=== PATIENT | male | born 2005 | race Caucasian/White ===

== ENCOUNTER 2023-12-09 17:35 | Emergency (ER) | payer BC, SELFPAY ==
--- NOTE | ~2023-12-09 | XR_ITS ---
CHEST RADIOGRAPH, PA AND LATERAL CLINICAL HISTORY: cp . COMPARISON: 09/23/2009 TECHNIQUE: PA and lateral views of the chest. FINDINGS The cardiomediastinal silhouette is unremarkable. Mild peribronchial thickening detected bilaterally. The lungs are otherwise clear. Visualized osseous structures and soft tissues are unremarkable. IMPRESSION: Mild peribronchial thickening, without focal infiltrate or effusion. Reviewed, dictated and finalized at location A.
--- NOTE | 2023-12-09 17:36 | ECG_ITS ---
Test Date: 2023-12-09 17:41:38 Measurements Intervals [place] Rate: 75 P: 64 GA: 147 QRS: 64 QRSD: 97 T: 45 QT: 365 QTc: 408 Interpretive Statements SINUS RHYTHM No previous ECG available for comparison Electronically Signed On 12-10-2023 15:25:25 CDT by Gavin Guardado M.D.
[2023-12-09 17:45] VITALS: BP 143/90; PULSE 73; RESP 16; TEMP 36.4; O2SAT 100
[2023-12-09 17:52] LABS: Basophils Percent Auto 0.3 % (0.2-1.2); Eosinophils Absolute Auto 0.1 K/mm3 (0-0.3); Eosinophils Percent Auto 1.2 % (0-4.4); Immature Granulocyte Absolute 0.01 K/mm3 (0.00-0.031); Immature Granulocyte Percent A 0.1 % (0-0.5); Lymphocytes Absolute Auto 1.82 K/mm3 (0.9-3.2); Lymphocytes Percent Auto 24.1 % (18.3-44.2); Mean Corpuscular HGB Conc 34.7 g/dl (32-36); Mean Corpuscular Hemoglobin 30.9 pg (26-34); Mean Corpuscular Volume 88.9 fl (80-100); Mean Platelet Volume 9.1 fl (7.4-10.4); Monocytes Absolute Auto 0.5 K/mm3 (0.1-0.6); Monocytes Percent Auto 7.1 % (2.6-8.5); Neutrophils Absolute Auto 5.1 K/mm3 (1.3-6.7); Neutrophils Percent Auto 67.2 % (45.5-73.1); Platelet Count Result 271 k/mm3 (150-375); Red Blood Count 5.51 M/mm3 (4.6-6.20); Red Cell Distribution Width 11.9 % (11.5-14.5); White Blood Count 7.6 K/mm3 (4.5-10.0)
[2023-12-09 18:03] LABS: INR 0.9; Prothrombin Time 12.8 Seconds (11.1-14.7)
[2023-12-09 18:04] LABS: Alanine Aminotransferase 17 U/L (6-50); Albumin Level 5.2 g/dL (3.5-5.1); Alkaline Phosphatase 58 U/L (38-126); Anion Gap 11 mmol/L (4-12); Aspartate Amino Transferase 26 U/L (17-59); Bilirubin,Total 0.5 mg/dL (0.2-1.3); Blood Urea Nitrogen 18 mg/dL (9-20); Calcium 9.9 mg/dL (8.4-10.2); Carbon Dioxide 28 mmol/L (22-30); Chloride 101 mmol/L (98-107); Estimated CRCL calculation 110 ml/min; Estimated Glomerular Filt Rate > 60; Glucose 100 mg/dL (65-110); Lipase 83 U/L (23-300); Partial Thromboplastin Time 29.1 Seconds (22.3-36.8); Sodium 140 mmol/L (137-145)
[2023-12-09 18:16] LABS: Troponin I < 0.012 ng/mL (0.000-0.034)
[2023-12-09 19:16] VITALS: PULSE 84
[2023-12-09 19:17] VITALS: BP 148/90; PULSE 84; RESP 14; O2SAT 100
--- NOTE | 2023-12-09 19:27 | ED_ITS ---
HPI - Chest Pain General Chief Complaint: Chest Pain Stated Complaint: cp Time Seen by Provider: 12/09/23 19:19 History of Present Illness HPI narrative: 18-year-old male presents to the emergency department for chest pain for 4 days. Patient states the pain is located in the anterior center of his chest describes it as sore. He denies any aggravating or alleviating factors includi ng pleuritic pain. Denies radiating pain or shortness of breath. denies cough or congestion, fever, lower extremity edema, history of VTE , hemoptysis. Denies injury or trauma to his chest wall. 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 He was hospitalized for 2-3 days and discharged home with colchicine. 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 He states he has not had any chest pain since he was discharged from the hospital. States his current pain does not feel like his myocarditis pain. Denies fever, body aches or flu-like symptoms. Denies history of family cardiac disease or CVA. Denies smoking. Related Data Allergies Allergy/AdvReac Type Severity Reaction Status Date / Time No Known Allergies Allergy Verified 12/09/23 17:35 Review of Systems Review of Systems: All systems reviewed & are unremarkable except as noted in HPI and below Exam Narrative: GENERAL: Well-appearing, well-nourished, and in no acute distress. HEAD: Normocephalic, atraumatic. EYES: PERRLA and EOMI. ENT: Nares clear, no rhinorrhea or epistaxis. Mucous membranes moist. NECK: Supple. CHEST: Clear to auscultation. No respiratory distress. No tenderness to chest wall HEART: Regular rate and rhythm. No murmur heard. Normal peripheral pulses. ABDOMEN: Soft, nontender, nondistended, normal active bowel sounds. EXTREMITIES: Normal range of motion. No edema. negative Homans bilaterally SKIN: Warm, dry, no rash. NEURO: No focal deficits. Alert and oriented x3 Course Vital Signs Vital signs: Vital Signs Temperature 97.6 F 12/09/23 17:45 Pulse Rate 73 12/09/23 17:45 Respiratory Rate 16 12/09/23 17:45 Blood Pressure 143/90 H 12/09/23 17:45 Pulse Oximetry 100 10/24/24 17:45 Temperature 97.6 F 12/09/23 17:45 Pulse Rate 91 12/09/23 20:04 Respiratory Rate 20 12/09/23 20:04 Blood Pressure 131/91 H 12/09/23 20:04 Pulse Oximetry 99 12/09/23 20:04 Oxygen Delivery Room Air 12/09/23 19:17 MDM - Chest Pain MDM Narrative Medical decision making narrative: 18-year-old male with history of myocarditis diagnosed in September of 2023 presents to the emergency department for substernal chest pain that started 4 days ago. No aggravating or alleviating factors. Vitals with mild elevated blood pressure 143/90, otherwise unremarkable. He is afebrile nontoxic appearing. He is well appearing on exam. EKG reveals sinus rhythm with a rate of 75 bpm., normal RI interval, normal QRS duration, normal QTC, no ST elevations or AV block consistent with myocarditis. His troponin is undetectable. Chest x-ray reveals mild pe ribronchial thickening without focal infiltrate or effusion, patient denies cough or congestion. Lipase is normal. ESR and CRP are within normal limits, therefore return of myocarditis or pericarditis is less likely. BNP is within normal limits. Workup discussed with patient and his family at bedside. His presentation is consistent with costochondritis. This was discussed with the patient. He was given a dose of IM Toradol in the ED and ibuprofen was sent to the pharmacy. I advised him to follow-up with his automatic gluing machine operator and attend his appointment on December 19. I discussed strict ED return precautions. He and his family are agreeable to plan verbalized understanding. Discharged in stable condition. Lab Data 12/09/23 17:46 12/09/23 17:46 Labs: Lab Results 12/09/23 Range/Units 17:46 WBC 7.6 (4.5-10.0) K/mm3 RBC 5.51 (4.6-6.20) M/mm3 Hgb 17.0 (14.0-18.0) g/dL Hct 49.0 (42.0-52.0) % MCV 88.9 (80-100) fl MCH 30.9 (26-34) pg MCHC 34.7 (32-36) g/dl RDW 11.9 (11.5-14.5) % Plt Count 271 (150-375) k/mm3 MPV 9.1 (7.4-10.4) fl Immature Gran % (Auto) 0.1 (0-0.5) % Neut % (Auto) 67.2 (45.5-73.1) % Lymph % (Auto) 24.1 (18.3-44.2) % Person % (Auto) 7.1 (2.6-8.5) % Eos % (Auto) 1.2 (0-4.4) % Baso % (Auto) 0.3 (0.2-1.2) % Lymph # (Auto) 1.82 (0.9-3.2) K/mm3 Person # (Auto) 0.5 (0.1-0.6) K/mm3 Eos # (Auto) 0.1 (0-0.3) K/mm3 Baso # (Auto) 0.0 (0.0-0.1) K/mm3 Abs Immat Gran (auto) 0.01 (0.00-0.031) K/mm3 Absolute Neuts (auto) 5.1 (1.3-6.7) K/mm3 Absolute Nucleated RBC 0.000 (0.0-0.012) K/mm3 Nucleated RBC % 0.0 (0.0-0.2) % ESR 3 (0-20) mm/hr PT 12.8 (11.1-14.7) Seconds INR 0.9 APTT 29.1 (22.3-36.8) Seconds Sodium 140 (137-145) mmol/L Potassium 4.0 (3.4-5.0) mmol/L Chloride 101 (98-107) mmol/L Carbon Dioxide 28 (22-30) mmol/L Anion Gap 11 (4-12) mmol/L BUN 18 (9-20) mg/dL Creatinine 1.10 (0.7-1.3) mg/dL Estim Creat Clear Calc 110 ml/min Estimated GFR > 60 (59 - ) Glucose 100 (65-110) mg/dL Calcium 9.9 (8.4-10.2) mg/dL Total Bilirubin 0.5 (0.2-1.3) mg/dL AST 26 (17-59) U/L ALT 17 (6-50) U/L Alkaline Phosphatase 58 (38-126) U/L Troponin I < 0.012 (0.000-0.034) ng/mL C-Reactive Protein < 0.5 (<1.0) mg/dL NT-Pro-B Natriuret Pep < 20 (19.9-100) pg/mL Total Protein 9.0 H (6.3-8.2) g/dL Albumin 5.2 H (3.5-5.1) g/dL Lipase 83 (23-300) U/L Discharge Plan Discharge Clinical Impression: Atypical chest pain, Costochondritis Patient Disposition: Home, Self-Care Condition: Stable Instructions: Antibiotic Form, Chest Pain (ED), Costochondritis (DC) Additional Instructions: Your evaluated in the emergency department for chest pain. Your workup here is reassuring. Your presentation is consistent with costochondritis as discussed. Please continue taking the colchicine and take the ibuprofen as needed for pain. Please follow-up closely with your automatic gluing machine operator. Return to the emergency department if the pain changes or worsens, you develop shortness of breath, fever, or other concerning symptoms. Prescriptions: New ibuprofen 800 mg tablet 800 mg PO TID PRN (Reason: pain) Qty: 20 0RF Follow-up/Referrals: Hiral Guevara MD [Primary Care Provider] - Quality HEART score for chest pain patients History: slightly suspicious ECG: normal Age: < or = to 45 years Risk factors: no risk factors known Troponin: < or = to 1x normal limit Heart score: 0
[2023-12-09 20:01] LABS: Erythrocyte Sedimentation Rate 3 mm/hr (0-20)
[2023-12-09 20:04] VITALS: BP 131/91; PULSE 91; RESP 20; O2SAT 99
[2023-12-09 20:12] LABS: CRP < 0.5 mg/dL (<1.0)
[2023-12-09 20:19] LABS: NT Pro B Type Natriuretic Pept < 20 pg/mL (19.9-100)
[2023-12-09] MEDS: KETOROLAC 30 MG/ML VIAL (*BKC) IM (20:56)
[2023-12-09 20:59] VITALS: BP 118/78; PULSE 79; RESP 14; O2SAT 99
== END 2023-12-09 21:00 | disposition home or self-care (01) ==
PROVIDERS: Family Medicine; Emergency Provider Physician Assistant; PCP Pediatrics
DX: R07.89 Other chest pain (principal); M94.0 Chondrocostal junction syndrome [Tietze]; I51.4 Myocarditis, unspecified; U09.9 Post COVID-19 condition, unspecified
CPT/HCPCS: 36415; 71046; 80053; 83690; 83880; 84484; 85025; 85610; 85652; 85730; 86140; 93005; 96372; 99284; J1885